=== PATIENT | female | born 1935 | race Caucasian/White ===

== ENCOUNTER 2017-10-10 11:17 | Emergency (ER) | payer OTHER, MEDICARE ==
--- NOTE | 2017-10-10 11:49 | EDPHY ---
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 Was seen at urgent care and referred here with a wrist fracture. REVIEW OF SYSTEMS: No other injury, no weakness or numbness in the left hand Breakfast at 7:30 a.m. And water at 10:45 a.m. PAST MEDICAL HISTORY: Includes appendectomy, hypertension, hypothyroid, glaucoma. Social history: Here with a friend General Appearance: Alert and conversant, cooperative. Right wrist in a splint, dressing taken down and has dorsal deformity at the right wrist with no skin laceration. Normal motor sensory and capillary refill. Emergency Department course/MDM: X-rays reviewed shows comminuted right distal radius fracture. 1158: Discussed with Dr. Bowling, requests keep in a splint and sent to his office now for reduction Smoking Status: Never smoked Constitutional: Initial Vital Signs Temperature (C) 36.7 C 10/10/17 11:22 Heart Rate 76 10/10/17 11:22 Respiratory Rate 17 10/10/17 11:22 Blood Pressure 185/74 H 10/10/17 11:22 O2 Sat (%) 96 10/10/17 11:22 O2 Delivery Mode Room Air Allergies/Adverse Reactions: codeine Allergy (Verified 10/10/17 11:21) Home Medications: Medication Instructions Recorded Levothyroxine 10/10/17 Lisinopril 10/10/17 Lumigan 0.01% (*) 10/10/17 MDM/Departure - Depart Disposition: Home, Routine, Self-Care Clinical Impression: Closed fracture of right distal radius Qualifiers: Encounter type: initial encounter Fracture morphology: unspecified fracture morphology Qualified Code(s): S52.501A - Unspecified fracture of the lower end of right radius, initial encounter for closed fracture Condition: Good Instructions: Wrist Fracture in Adults (ED) Additional Instructions: Keep splint on, go directly to Dr. Bowling's office for hand surgery consultation now and they are expecting you. Referrals: NINO SANDHU [Primary Care Provider] - As per Instructions Delroy Bowling MD [Medical Doctor] - As per Instructions
[2017-10-10 12:18] VITALS: BP 145/81
== END 2017-10-10 12:18 | disposition home or self-care (01) ==
DX: S52.501A Unspecified fracture of the lower end of right radius, initial encounter for closed fracture (principal); I10 Essential (primary) hypertension; X58.XXXA Exposure to other specified factors, initial encounter; Y99.8 Other external cause status; Y93.73 Activity, racquet and hand sports

== ENCOUNTER → 2017-10-10 | Outpatient (CLI) | payer OTHER, MEDICARE | LOC: GIMAGING 10:02 | PROVIDERS: ATTEND Nurse Practitioner Acute Care | DX: S52.501A Unspecified fracture of the lower end of right radius, initial encounter for closed fracture (principal); Z87.81 Personal history of (healed) traumatic fracture | CPT/HCPCS: 73110-PO ==